=== PATIENT | male | born 1990 | race Caucasian/White ===

== ENCOUNTER 2023-12-22 16:08 | Emergency (ER) | payer OTHER, SELFPAY ==
[2023-12-22] VITALS (10 sets, daily range): BP systolic 123–131; BP diastolic 69–90; PULSE 59–86; TEMP 37.3; O2SAT 98–100; BMI 24.4
--- NOTE | 2023-12-22 16:18 | ECG_ITS ---
The [facility] Test Date: 2023-12-22 Pat Name: REVA ABRAHAM Department: Room: - Gender: Male Paid Intern: : 1990 Requested By: Order Number: [id number] Reading MD: VENESSA MATHIS Measurements Intervals [place] Rate: 80 P: 58 MI: 152 QRS: 89 QRSD: 92 T: 45 QT: 372 QTc: 408 Interpretive Statements 1100 Sinus rhythm 1102 Sinus arrhythmia 9110 normal ECG Compared to ECG 10/21/2022 17:18:04 Right-axis deviation no longer present Electronically Signed On 12-23-2023 6:53:15 EDT by VENESSA MATHIS
--- NOTE | 2023-12-22 16:18 | ED.GENADUL1 ---
HPI HPI - General Adult General Chief complaint: Chest Pain Stated complaint: CHEST PAIN Time Seen by Provider: 12/22/23 16:09 Source: patient Mode of arrival: Wheelchair Limitations: no limitations History of Present Illness HPI narrative: Patient is a 33-year-old male who presents to the emergency department for the evaluation of intermittent chest pain for the last 2 hours. 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 He states he stopped driving but continued to feel dizzy, he had no syncope, no sensation of spinning. He has not had any visual loss, fevers, cough or congestion. He took Benadryl this morning for allergy type symptoms after mowing the lawn yesterday. He states the chest pain is in the left anterior chest, he describes it as discomfort that comes and goes. He has no active pain at this time. He is noted to be breathing rapidly and reports feeling numbness in his face and hands. He states he had a similar episode several months ago. He is a greater than 1 pack/day cigarette smoker. He has no personal history of heart or lung problems, he reports coronary artery disease in the family on his mother side. He has not had any swelling, hemoptysis Related Data Home Medications ?Medication ?Instructions ?Recorded ?Confirmed risperidone 3 mg tablet 3 mg PO DAILY 12/22/23 12/22/23 Allergies Allergy/AdvReac Type Severity Reaction Status Date / Time No Known Drug Allergies Allergy Verified 12/22/23 16:11 Opioid HPI Opioid Management Most Recent Opioid Data: No Data to Display Review of Systems ROS Constitutional Denies: fever or chills Ears, nose, mouth, and throat Denies: throat pain or nasal congestion Cardiovascular Reports: chest pain Respiratory Denies: shortness of breath Gastrointestinal Denies: nausea or vomiting Integumentary/Breast Denies: rash Neurological Reports: numbness in extremities and dizziness; Denies: headache Hematologic/Lymphatic Denies: easy bruising or easy bleeding Allergic/Immunologic Denies: hives Exam Narrative Exam Narrative: Gen.: Awake, alert, in no distress Head: Normocephalic, atraumatic ENT: Moist mucous membranes Respiratory: No respiratory distress, lungs clear bilaterally Cardio: Regular rate and rhythm Extremities: Moves extremities equally, no pedal edema Psych: Normal mood and affect Neuro: No focal neuro deficit Skin: Warm, dry, intact Constitutional Vital Signs, click to edit/add: Last Vital Signs Temp 99.1 F 12/22/23 16:12 Pulse 59 L 12/22/23 16:50 Resp 20 12/22/23 16:50 BP 130/90 12/22/23 16:31 Pulse Ox 99 12/22/23 16:50 O2 Del Method Room Air 12/22/23 16:32 Course Vital Signs Vital signs: Vital Signs Temperature 99.1 F 12/22/23 16:12 Pulse Rate 83 12/22/23 16:12 Respiratory Rate 20 12/22/23 16:12 Blood Pressure 125/74 12/22/23 16:12 Pulse Oximetry 100 12/22/23 16:12 Oxygen Delivery Method Room Air 12/22/23 16:12 Temperature 99.1 F 12/22/23 16:12 Pulse Rate 59 L 12/22/23 16:50 Respiratory Rate 20 12/22/23 16:50 Blood Pressure 130/90 12/22/23 16:31 Pulse Oximetry 99 12/22/23 16:50 Oxygen Delivery Method Room Air 12/22/23 16:32 Medical Decision Making MDM Narrative Medical decision making narrative: Patient with stable vital signs, unremarkable EKG on arrival to the ER. He was treated with IV fluids. He admits that he drinks a significant number of energy drinks daily. Labs obtained showing normal D-dimer, troponin and BNP. Patient with slight hypokalemia and treated with oral potassium chloride. Chest x-ray is also unremarkable. He is given education and reassurance. He was provided with PCP follow-up. Return to the ER if symptoms change or worsen Medical Records Medical records reviewed: Yes I reviewed the patient's medical records Lab Data Lab results reviewed: Yes I reviewed the patient's lab results Labs: Lab Results 12/22/23 Range/Units 16:16 WBC 12.5 H (4.0-11.0) 10^3/uL RBC 4.93 (4.70-6.10) 10^6/uL Hgb 15.1 (14.0-18.0) g/dL Hct 43.6 (42.0-54.0) % MCV 88.4 (80.0-94.0) fL MCH 30.6 (25.9-34.0) pg MCHC 34.6 (29.9-35.2) g/dL RDW 12.4 (11.0-15.0) % Plt Count 183 (150-450) 10^3/uL MPV 11.9 (9.5-13.5) fL Neut % (Auto) 75.4 H (43.0-75.0) % Lymph % (Auto) 15.6 L (20.5-60.0) % [place] % (Auto) 7.9 (1.7-12.0) % Eos % (Auto) 0.6 L (0.9-7.0) % Baso % (Auto) 0.3 (0.2-2.0) % Neut # (Auto) 9.4 H (1.4-6.5) 10^3/uL Lymph # (Auto) 2.0 (1.2-3.8) 10^3/uL [place] # (Auto) 1.0 H (0.3-0.8) 10^3/uL Eos # (Auto) 0.1 (0.0-0.7) 10^3/uL Baso # (Auto) 0.0 (0.0-0.1) 10^3/uL Abs Immat Gran (auto) 0.03 (0.00-0.03) 10^3/uL Imm/Tot Granulo (auto) 0.2 (0.0-0.5) % PT 10.6 (9.0-11.6) sec INR 1.00 D-Dimer 0.32 (<=0.59) mg/L FEU Sodium 137 (136-145) mmol/L Potassium 3.4 L (3.5-5.1) mmol/L Chloride 101 (98-107) mmol/L Carbon Dioxide 25.6 (21.0-32.0) mmol/L Anion Gap 13.8 BUN 10.0 (7.0-18.0) mg/dL Creatinine 1.24 (0.70-1.30) mg/dL Est GFR ( Amer) >60 (>=60) Est GFR (Non-Af Amer) >60 (>=60) BUN/Creatinine Ratio 8.1 Glucose 93 (74-106) mg/dL Calcium 9.9 (8.5-10.1) mg/dL Total Bilirubin 0.6 (0.2-1.0) mg/dL AST 21 (15-37) U/L ALT 33 (16-63) U/L Alkaline Phosphatase 84 (46-116) U/L Troponin I High Sens 4.7 (4.0-76.1) pg/mL NT-Pro-B Natriuret Pep 163.0 (<=450.0) pg/mL Total Protein 8.3 H (6.4-8.2) g/dL Albumin 4.5 (3.4-5.0) g/dL Globulin 3.8 g/dL Albumin/Globulin Ratio 1.2 TSH 1.569 (0.358-3.740) uIU/mL Imaging Data Chest x-ray: Attestation: I have reviewed the pertinent imaging results. ECG Data Attestation: I personally reviewed and interpreted this ECG as follows: (Sinus rhythm at a rate of 80, sinus arrhythmia with no acute ST elevation or ectopy. EKG reviewed by attending physician) Discharge Plan Discharge Stand Alone Forms: Portal Instructions Chief Complaint: Chest Pain Clinical Impression: Dizziness, Chest pain Patient Disposition: Home, Self-Care Time of Disposition Decision: 17:11 Condition: Good Prescriptions / Home Meds: No Action risperidone 3 mg tablet 3 mg PO DAILY Print Language: Bhut[place] Instructions: Chest Pain (ED), Dizziness (ED) Referrals: Physical Therapy,Template, PT [Physical Therapist] - 1 week
[2023-12-22] MEDS: 0.9 % SODIUM CHLORIDE 1,000 ML 1000 ML IV (16:35)
[2023-12-22 16:37] LABS: Basophils Percent Auto 0.3 % (0.2-2.0); Eosinophils Absolute Auto 0.1 10^3/uL (0.0-0.7); Eosinophils Percent Auto 0.6 % (0.9-7.0); Hematocrit 43.6 % (42.0-54.0); Hemoglobin 15.1 g/dL (14.0-18.0); Immature Granulocytes Abs Auto 0.03 10^3/uL (0.00-0.03); Immature Granulocytes Pct Auto 0.2 % (0.0-0.5); Lymphocytes Percent Auto 15.6 % (20.5-60.0); Mean Corpuscular HGB Conc 34.6 g/dL (29.9-35.2); Mean Corpuscular Hemoglobin 30.6 pg (25.9-34.0); Mean Corpuscular Volume 88.4 fL (80.0-94.0); Mean Platelet Volume 11.9 fL (9.5-13.5); Monocytes Percent Auto 7.9 % (1.7-12.0); Neutrophils Absolute Auto 9.4 10^3/uL (1.4-6.5); Neutrophils Percent Auto 75.4 % (43.0-75.0); Platelet Count 183 10^3/uL (150-450); Red Blood Count 4.93 10^6/uL (4.70-6.10); Red Cell Distribution Width 12.4 % (11.0-15.0); White Blood Count 12.5 10^3/uL (4.0-11.0)
[2023-12-22 16:45] LABS: D Dimer 0.32 mg/L FEU (<=0.59); Prothrombin Time 10.6 sec (9.0-11.6)
[2023-12-22 16:57] LABS: Alanine Aminotransferase 33 U/L (16-63); Albumin Globulin Ratio 1.2; Albumin Level 4.5 g/dL (3.4-5.0); Alkaline Phosphatase 84 U/L (46-116); Anion Gap 13.8; Aspartate Amino Transferase 21 U/L (15-37); BUN Creatinine Ratio 8.1; Bilirubin Total 0.6 mg/dL (0.2-1.0); Calcium 9.9 mg/dL (8.5-10.1); Carbon Dioxide 25.6 mmol/L (21.0-32.0); Chloride 101 mmol/L (98-107); Estimated GFR (African America >60 (>=60); Estimated GFR (Non-African Ame >60 (>=60); Globulin 3.8 g/dL; Glucose 93 mg/dL (74-106); Potassium 3.4 mmol/L (3.5-5.1); Sodium 137 mmol/L (136-145); Thyroid Stimulating Hormone 1.569 uIU/mL (0.358-3.740); Total Protein 8.3 g/dL (6.4-8.2); Troponin I High Sensitivity 4.7 pg/mL (4.0-76.1)
--- NOTE | 2023-12-22 17:02 | XR_ITS ---
The [address] [address] Patient Name: REVA ABRAHAM MRN: [id number] date: 1990 Sex: M Assigned Patient Location: ED.MAIN Current Patient Location: Accession/Order Number: [id number] Exam Date: 12/22/2023 16:55 Report Date: 12/22/2023 18:03 At the request of: CRIS PALACIOS Procedure: XR chest 1V EXAM: XR chest 1V HISTORY: Chest pain COMPARISON: 10/21/2022 TECHNIQUE: Chest X-ray AP, 1 view FINDINGS: Support devices: None. Lungs/pleura: No consolidation, effusion, or pneumothorax. Heart and mediastinum: Normal contours. Bones: No acute abnormality identified. XR/XR chest 1V Impression: No radiographic evidence of acute cardiopulmonary process. Electronically authenticated by: LAURY DUARTE Date: 12/22/2023 18:03
[2023-12-22] MEDS: POTASSIUM CHLORIDE 10 MEQ ER TABLET 40 MEQ PO (17:17)
== END 2023-12-22 17:35 | disposition home or self-care (01) ==
PROVIDERS: Physician Assistant; Emergency Provider Emergency Medicine
DX: R07.9 Chest pain, unspecified (principal); R42 Dizziness and giddiness; F17.210 Nicotine dependence, cigarettes, uncomplicated; E87.6 Hypokalemia
CPT/HCPCS: 36415; 71045; 80053; 83880; 84443; 84484; 84703; 85025; 85378; 85610; 93005; 99285